=== PATIENT | male | born 1980 | race African-American/Black ===

== ENCOUNTER 2017-09-25 07:32 | Emergency (ER) | payer BC ==
[2017-09-25 08:19] LABS: #Eosinphils 0.2 thou/uL (0.0-0.7); #Lymphocytes 1.4 thou/uL (1.20-3.40); #Monocytes 0.3 thou/uL (0.11-0.59); #Neutrophils 3.1 thou/uL (1.40-6.50); %Basophils 0.7 % (0.0-1.0); %Eosinophils 4.3 % (0.0-10.0); %Lymphocytes 27.5 % (21.0-51.0); %Neutrophils 61.4 % (42.0-75.0); Hemoglobin 15.2 g/dL (14.0-18.0); Mean Corpuscular HGB CONC 34.8 g/dL (32.0-36.0); Mean Corpuscular Hemoglobin 30.3 pg (27.0-31.0); Mean Platelet Volume 8.8 fL (7.4-10.4); Platelet Count 188 thou/uL (130-400); RBC Distribution Width 11.5 % (11.5-14.5); Red Blood Cell (RBC) Count 5.02 mill/uL (4.70-6.10)
[2017-09-25 08:21] LABS: Base Excess-Venous 0.9 mmol/L (-30.0-30.0); CO2 Tension (PvCO2) 33.5 mmHg (41.0-51.0); Calcium, Ionized 1.08 mmol/L (1.12-1.32); Hemoglobin - Calc 15.4 g/dL (12.0-18.0); O2 Tension (PvO2) 53.9 mmHg (35.0-45.0); Potassium 4.2 mmol/L (3.4-4.7); T. Carbon Dioxide 25.1 mmol/L (1.0-85.0); pH (Venous) 7.464 (7.35-7.45); vO2 Saturation-calc 89.7 % (0.0-100.0)
[2017-09-25] MEDS ORDERED: Ondansetron HCl/PF 4 MG/2 ML Vial ONE (08:28)
[2017-09-25] MEDS ORDERED: Insulin Regular 300 UNITS/3 ML VIAL ONE (08:28)
[2017-09-25 08:43] LABS: ALT (SGPT) 16 U/L (8-55); AST (SGOT) 18 U/L (5-34); Albumin 4.5 g/dL (3.5-5.0); Alkaline Phosphatase 61 U/L (40-150); Anion Gap 12 mmol/L (10-20); BUN (Urea Nitrogen) 17 mg/dL (8.9-20.6); Bilirubin, Total 1.4 mg/dL (0.2-1.2); Calc. Creatinine Clearance 0 mL/min (70-130); Calcium 9.5 mg/dL (7.8-10.44); Carbon Dioxide 26 mmol/L (22-29); Chloride 98 mmol/L (98-107); Estimated GFR-MDRD 84; Globulin 2.6 g/dL (2.4-3.5); Glucose 361 mg/dL (70-105); Lipase 20 U/L (8-78); Potassium 4.2 mmol/L (3.5-5.1); Protein, Total 7.1 g/dL (6.0-8.3); Sodium 132 mmol/L (136-145)
[2017-09-25 08:48] LABS: Phosphorus 1.5 mg/dL (2.3-4.7)
[2017-09-25 09:57] LABS: Bilirubin Negative (Negative); Blood, Urine Negative (Negative); Clarity CLEAR (Clear); Glucose, Urine (Dipstick) 500 mg/dL (Negative); Leukocyte Negative (Negative); Nitrite Negative (Negative); Protein, Urine (Dipstick) Negative (Neg-Trace); Specific Gravity, Urine 1.021 (1.002-1.036); pH, Urine 7.5 (5.0-9.0)
== END 2017-09-25 10:44 | disposition home or self-care (01) ==
LOC: ERS 07:32
DX: T85.694A Other mechanical complication of insulin pump, initial encounter (principal); E11.65 Type 2 diabetes mellitus with hyperglycemia; I10 Essential (primary) hypertension; Z79.4 Long term (current) use of insulin; Z96.41 Presence of insulin pump (external) (internal)
CPT/HCPCS: 36416; 80053; 81003; 82010; 82330; 82803; 83690; 83735; 84100; 85025; 96361; 96372; 96374; J1815; J2405

== ENCOUNTER 2018-07-18 17:54 | Emergency (ER) | payer BC ==
[2018-07-18] MEDS ORDERED: Fentanyl 100 MCG/2 ML VIAL ONE (18:31)
[2018-07-18 18:33] LABS: #Eosinphils 0.2 thou/uL (0.0-0.7); #Lymphocytes 1.8 thou/uL (1.20-3.40); #Monocytes 0.3 thou/uL (0.11-0.59); #Neutrophils 2.9 thou/uL (1.40-6.50); %Basophils 0.6 % (0.0-1.0); %Eosinophils 3.1 % (0.0-10.0); %Lymphocytes 34.3 % (21.0-51.0); %Monocytes 6.1 % (0.0-10.0); %Neutrophils 55.9 % (42.0-75.0); Hemoglobin 14.6 g/dL (14.0-18.0); Mean Corpuscular HGB CONC 35.2 g/dL (32.0-36.0); Mean Corpuscular Hemoglobin 30.6 pg (27.0-31.0); Mean Platelet Volume 8.5 fL (7.4-10.4); Platelet Count 188 thou/uL (130-400); RBC Distribution Width 11.5 % (11.5-14.5); Red Blood Cell (RBC) Count 4.75 mill/uL (4.70-6.10); White Blood Cell (WBC) Count 5.2 thou/uL (4.8-10.8)
[2018-07-18 18:55] LABS: ALT (SGPT) 14 U/L (8-55); AST (SGOT) 20 U/L (5-34); Albumin 4.4 g/dL (3.5-5.0); Alkaline Phosphatase 59 U/L (40-150); Anion Gap 13 mmol/L (10-20); BUN (Urea Nitrogen) 10 mg/dL (8.9-20.6); Bilirubin, Total 0.8 mg/dL (0.2-1.2); CK (CPK) 265 U/L (30-200); Calc. Creatinine Clearance 0 mL/min (70-130); Calcium 9.4 mg/dL (7.8-10.44); Carbon Dioxide 23 mmol/L (22-29); Chloride 104 mmol/L (98-107); Estimated GFR-MDRD 86; Globulin 2.5 g/dL (2.4-3.5); Glucose 93 mg/dL (70-105); Protein, Total 6.9 g/dL (6.0-8.3); Sodium 136 mmol/L (136-145)
--- NOTE | 2018-07-18 19:39 | RAD ---
PORTABLE CHEST: HISTORY: Chest pain. COMPARISON: 10/25/2008 FINDINGS: Heart size and mediastinum are within normal limits. Lungs are clear of any infiltrates. No signifi cant bony findings. POS: [facility]
== END 2018-07-18 19:45 | disposition home or self-care (01) ==
LOC: ERS 17:54
DX: R07.9 Chest pain, unspecified (principal); M79.602 Pain in left arm; M79.601 Pain in right arm; E10.9 Type 1 diabetes mellitus without complications; I10 Essential (primary) hypertension; Z79.4 Long term (current) use of insulin; Z79.899 Other long term (current) drug therapy
CPT/HCPCS: 36415; 36416; 71045; 80053; 82550; 84484; 85025; 93005; 96374; J3010

== ENCOUNTER 2019-10-21 07:36 | Outpatient (CLI) | payer OTHER ==
[2019-10-21] MEDS ORDERED: Iopamidol-370 76% 500 ML 1 ML ONE (08:39)
--- NOTE | 2019-10-21 08:51 | CT ---
CT OF THE ABDOMEN AND PELVIS WITH CONTRAST: HISTORY: Lower abdominal pain for 2 weeks. TECHNIQUE: Multiple contiguous axial images were obtained in a CT of the abdomen and pelvis with contrast. P.o. contrast was administered. Sagittal and coronal reformats were performed. FINDINGS: The liver, gallbladder, kidneys, adrenal glands, spleen, and pancreas are unremarkable. No free air, free fluid, or stranding changes are seen in the abdomen or pelvis. The large and small bowel are u nremarkable. The appendix is unremarkable. No abdominal or pelvic lymphadenopathy are appreciated. The bones, abdominal wall soft tissues, and visualized inferior thorax are unremarkable. IMPRESSION: No evidence of acute intraabdominal/pelvic abnormality. POS: [facility]
== END 2019-10-21 07:37 | disposition home or self-care (01) ==
LOC: BICCT 07:36
PROVIDERS: ATTEND Family Medicine
DX: R10.30 Lower abdominal pain, unspecified (principal)
CPT/HCPCS: 74177; Q9967

== ENCOUNTER 2020-04-16 14:42 | Outpatient (CLI) | payer OTHER ==
--- NOTE | 2020-04-16 16:30 | MRI ---
MRI OF LEFT SHOULDER PERFORMED WITHOUT CONTRAST ENHANCEMENT: History: Left shoulder pain, injury, tripped while carrying a couch. FINDINGS: Some mild arthrosis of the AC joint. The supra as well as infraspinatus tendons are intact. There is tendinosis changes of the supraspinatous tendon. Subscapularis muscle and tendon are intact and the biceps tendon is normal in position within the bic ipital groove. There is increased signal change which is not fluid density signal associated at the superior labrum just posterior to the biceps anchor, this probably represents a small chronic slap tear with the inte rmediate signal change being caused by some scar or granulation tissue. The inferior glenohumeral lig ament and ligamentous labral complex all appear intact. IMPRESSION: 1. Slap type tear of the superior labrum which may be more of a chronic injury. 2. Moderate tendinosis of the supraspinatus tendon. POS: [facility]
== END 2020-04-16 14:43 | disposition home or self-care (01) ==
LOC: TBSIIMAG 14:42
PROVIDERS: ATTEND Family Medicine
DX: M24.9 Joint derangement, unspecified (principal); S43.431A Superior glenoid labrum lesion of right shoulder, initial encounter; M75.82 Other shoulder lesions, left shoulder

== ENCOUNTER 2021-03-04 17:14 | Emergency (ER) | payer OTHER | END 2021-03-04 20:50 | disposition left against medical advice (07) | LOC: ERS 17:14 | DX: Z53.21 Procedure and treatment not carried out due to patient leaving prior to being seen by health care provider (principal) ==

== ENCOUNTER 2022-06-19 06:21 | Inpatient (IN) | payer OTHER ==
[2022-06-19 06:49] LABS: Actual Bicarbonate (HCO3v) 22 mEq/L (22-28); Base Excess -1.4 mEq/L (-2.0 to +3.0); Calcium, Ionized (venous) 1.09 mmol/L (1.16-1.32); Chloride (VBG) 100 mmol/L (98-106); Hemoglobin (Hb) 16.1 g/dL (13.2-17.3); Potassium (VBG) 4.95 mmol/L (3.70-5.30); pH (venous) 7.43 (7.32-7.43)
[2022-06-19 06:53] LABS: #Lymphocytes 1.3 thou/uL (1.20-3.40); #Monocytes 0.3 thou/uL (0.11-0.59); #Neutrophils 7.3 thou/uL (1.40-6.50); %Basophils 0.5 % (0.0-1.0); %Eosinophils 0.5 % (0.0-10.0); %Lymphocytes 14.2 % (21.0-51.0); %Neutrophils 81.8 % (42.0-75.0); Hemoglobin 14.9 g/dL (14.0-18.0); Mean Corpuscular HGB CONC 32.8 g/dL (32.0-36.0); Mean Corpuscular Hemoglobin 29.7 pg (27.0-31.0); Mean Corpuscular Volume 90.5 fl (78.0-98.0); Mean Platelet Volume 9.5 fL (7.4-10.4); Platelet Count 173 10x3/uL (130-400); RBC Distribution Width 11.7 % (11.5-14.5); Red Blood Cell (RBC) Count 5.03 mill/uL (4.70-6.10); White Blood Cell (WBC) Count 8.9 10x3/uL (4.8-10.8)
[2022-06-19 07:07] LABS: ALT (SGPT) 22 U/L (8-55); AST (SGOT) 18 U/L (5-34); Albumin 4.7 g/dL (3.5-5.0); Alkaline Phosphatase 72 U/L (40-110); Anion Gap 20 mmol/L (10-20); BUN (Urea Nitrogen) 16 mg/dL (8.9-20.6); Bilirubin, Total 2.2 mg/dL (0.2-1.2); CK (CPK) 118 U/L (30-200); Calc. Creatinine Clearance 0 mL/min (70-130); Calcium 9.7 mg/dL (7.8-10.44); Carbon Dioxide 20 mmol/L (22-29); Chloride 99 mmol/L (98-107); Estimated GFR 67; Lipase 68 U/L (8-78); Magnesium 1.9 mg/dL (1.6-2.6); Phosphorus 1.6 mg/dL (2.3-4.7); Protein, Total 7.7 g/dL (6.0-8.3); Sodium 134 mmol/L (136-145)
[2022-06-19] MEDS ORDERED: INSULIN REGULAR IN 0.9 % NACL 100 UNIT/100 ML BAG ONE (07:16)
[2022-06-19] MEDS ORDERED: Ondansetron PF 4 MG/2 ML Vial ONE (07:16)
[2022-06-19 07:22] LABS: Glucose 462 mg/dL (70-105)
[2022-06-19 07:29] LABS: SARS-CoV-2 NAA Rapid Test Not Detected (NotDetected)
[2022-06-19] MEDS ORDERED: Acetaminophen 325 MG TAB PO PRN (07:47)
[2022-06-19] MEDS ORDERED: Promethazine HCl 12.5 MG in Sodium Chloride 0.9% 50 ML IVPB PRN (08:09)
[2022-06-19 08:17] LABS: Bilirubin Negative (Negative); Blood, Urine Negative (Negative); Clarity Clear (Clear); Glucose, Urine (Dipstick) Greater than 1000 mg/dL (Negative); Ketone, Urine 100 mg/dL (Negative); Leukocyte Negative Leu/uL (Negative); Nitrite Negative (Negative); Protein, Urine (Dipstick) Negative (Neg-Trace); Specific Gravity, Urine 1.022 (1.002-1.036); Urobilinogen Normal mg/dL (Less than 2); pH, Urine 5.5 (5.0-9.0)
[2022-06-19 08:32] LABS: Hemoglobin A1c 7.6 % (4.0-6.0)
[2022-06-19] MEDS ORDERED: Famotidine/PF 20 mg/2ml Vial SLOW IVP SCH (09:00)
[2022-06-19 09:16] LABS: Calcium 8.4 mg/dL (7.8-10.44); Chloride 106 mmol/L (98-107); Potassium 4.4 mmol/L (3.5-5.1); Sodium 136 mmol/L (136-145)
[2022-06-19 09:17] LABS: Glucose 370 mg/dL (70-105)
[2022-06-19 09:18] LABS: Anion Gap 17 mmol/L (10-20); Carbon Dioxide 17 mmol/L (22-29)
[2022-06-19 09:20] LABS: Calc. Creatinine Clearance 0 mL/min (70-130); Estimated GFR 81
[2022-06-19 09:21] LABS: BUN (Urea Nitrogen) 17 mg/dL (8.9-20.6)
[2022-06-19] MEDS ORDERED: ADD ELECTROLYTE REPLACEMENT SET TO PROFILE SLOW IVP PRN (10:20)
[2022-06-19] MEDS ORDERED: Dextrose 50% Abboject 50 ML SYRINGE SLOW IVP PRN (10:21)
[2022-06-19] MEDS: Pantoprazole 40 MG VIAL IVP SCH (10:25)
[2022-06-19] MEDS: Enoxaparin Sodium 40 MG/0.4 ML SYRINGE SC SCH (10:27)
[2022-06-19] MEDS ORDERED: Dextrose 5 %-0.45 % NaCl 1,000 ML IV PRN (10:30)
[2022-06-19] MEDS ORDERED: HUMULIN R 100 UNITS in Sodium Chloride 0.9% 100 ML IVPB SCH (10:30)
[2022-06-19] MEDS ORDERED: NS 0.9% w/ 20 MEQ KCL 1,000 ML/1,000 ML BAG IV PRN ×2 (10:30)
[2022-06-19] MEDS ORDERED: Insulin Regular 300 UNITS/3 ML VIAL IVP SCH (10:30)
[2022-06-19] MEDS ORDERED: Dextrose 5% in Water 1,000 ML IV PRN (10:30)
[2022-06-19] MEDS ORDERED: Sodium Chloride 0.9% 1,000 ML IV PRN ×4 (10:30)
[2022-06-19 11:29] LABS: Lactic Acid 1.7 mmol/L (0.5-2.2)
[2022-06-19] MEDS: D5 1/2 NS w/20 mEq KCL 1,000 ML IV PRN ×2 (11:44→15:50)
[2022-06-19 13:21] LABS: Anion Gap 9 mmol/L (10-20); BUN (Urea Nitrogen) 14 mg/dL (8.9-20.6); Calc. Creatinine Clearance 99 mL/min (70-130); Calcium 8.1 mg/dL (7.8-10.44); Carbon Dioxide 22 mmol/L (22-29); Chloride 112 mmol/L (98-107); Estimated GFR 89; Glucose 164 mg/dL (70-105); Potassium 4.2 mmol/L (3.5-5.1); Sodium 139 mmol/L (136-145)
[2022-06-19] MEDS: Metoclopramide HCl 10 MG/2 ML VIAL IVP SCH ×2 (14:09→21:31)
[2022-06-19 17:18] LABS: Anion Gap 12 mmol/L (10-20); BUN (Urea Nitrogen) 12 mg/dL (8.9-20.6); Calc. Creatinine Clearance 109 mL/min (70-130); Calcium 8.1 mg/dL (7.8-10.44); Carbon Dioxide 21 mmol/L (22-29); Chloride 109 mmol/L (98-107); Estimated GFR 99; Glucose 187 mg/dL (70-105); Potassium 4.4 mmol/L (3.5-5.1); Sodium 138 mmol/L (136-145)
[2022-06-19] MEDS: NPH, Human Insulin Isophane 300 UNIT/3 ML VIAL SC SCH (17:26)
[2022-06-19] MEDS ORDERED: Electrolyte Replacement Protocol FS PRN (17:56)
[2022-06-19] MEDS: PHOS-NAK 1 PKT PACK PO SCH (20:01)
[2022-06-19] MEDS ORDERED: Magnesium 2 GM/50 ML(in water) 2 GM in Premix Bag 1 BAG IVPB SCH (21:00)
[2022-06-19 22:39] LABS: Anion Gap 12 mmol/L (10-20); BUN (Urea Nitrogen) 12 mg/dL (8.9-20.6); Calc. Creatinine Clearance 91 mL/min (70-130); Calcium 8.3 mg/dL (7.8-10.44); Carbon Dioxide 21 mmol/L (22-29); Chloride 107 mmol/L (98-107); Estimated GFR 80; Glucose 326 mg/dL (70-105); Potassium 4.3 mmol/L (3.5-5.1); Sodium 136 mmol/L (136-145)
[2022-06-20] MEDS: PHOS-NAK 1 PKT PACK PO SCH (00:16)
[2022-06-20 04:18] LABS: Magnesium 1.9 mg/dL (1.6-2.6); Phosphorus 2.8 mg/dL (2.3-4.7)
[2022-06-20] MEDS: Metoclopramide HCl 10 MG/2 ML VIAL IVP SCH ×2 (06:08→14:26)
[2022-06-20] MEDS: NPH, Human Insulin Isophane 300 UNIT/3 ML VIAL SC SCH (06:13)
[2022-06-20] MEDS: Enoxaparin Sodium 40 MG/0.4 ML SYRINGE SC SCH (07:13)
[2022-06-20] MEDS: Pantoprazole 40 MG VIAL IVP SCH (07:31)
[2022-06-20] MEDS ORDERED: Magnesium 2 GM/50 ML(in water) 2 GM in Premix Bag 1 BAG IVPB SCH (08:00)
[2022-06-20 10:26] LABS: #Eosinphils 0.2 thou/uL (0.0-0.7); #Lymphocytes 1.6 thou/uL (1.20-3.40); #Monocytes 0.3 thou/uL (0.11-0.59); #Neutrophils 2.2 thou/uL (1.40-6.50); %Basophils 0.1 % (0.0-1.0); %Eosinophils 3.6 % (0.0-10.0); %Lymphocytes 36.6 % (21.0-51.0); %Monocytes 7.5 % (0.0-10.0); %Neutrophils 52.2 % (42.0-75.0); Hemoglobin 12.4 g/dL (14.0-18.0); Mean Corpuscular HGB CONC 33.2 g/dL (32.0-36.0); Mean Corpuscular Hemoglobin 30.4 pg (27.0-31.0); Mean Corpuscular Volume 91.5 fl (78.0-98.0); Mean Platelet Volume 9.4 fL (7.4-10.4); Platelet Count 152 10x3/uL (130-400); RBC Distribution Width 11.7 % (11.5-14.5); Red Blood Cell (RBC) Count 4.09 mill/uL (4.70-6.10); White Blood Cell (WBC) Count 4.2 10x3/uL (4.8-10.8)
[2022-06-20 10:47] LABS: ALT (SGPT) 13 U/L (8-55); AST (SGOT) 13 U/L (5-34); Albumin 3.7 g/dL (3.5-5.0); Alkaline Phosphatase 44 U/L (40-110); Anion Gap 10 mmol/L (10-20); BUN (Urea Nitrogen) 9 mg/dL (8.9-20.6); Bilirubin, Total 2.5 mg/dL (0.2-1.2); Calc. Creatinine Clearance 87 mL/min (70-130); Calcium 8.4 mg/dL (7.8-10.44); Carbon Dioxide 25 mmol/L (22-29); Chloride 103 mmol/L (98-107); Estimated GFR 79; Globulin 2.2 g/dL (2.4-3.5); Glucose 399 mg/dL (70-105); Magnesium 1.7 mg/dL (1.6-2.6); Phosphorus 2.6 mg/dL (2.3-4.7); Potassium 4.3 mmol/L (3.5-5.1); Protein, Total 5.9 g/dL (6.0-8.3); Sodium 134 mmol/L (136-145)
[2022-06-20 12:02] VITALS: BMI 24.0
[2022-06-20 12:18] VITALS: TEMP 98.6
== END 2022-06-20 16:14 | disposition home or self-care (01) | DRG 639 ==
LOC: ERS 06:21 → IMCU/EMU 07:47
PROVIDERS: ADMIT Internal Medicine; ATTEND Internal Medicine
DX: E10.65 Type 1 diabetes mellitus with hyperglycemia (principal); Z20.822 Contact with and (suspected) exposure to COVID-19; I10 Essential (primary) hypertension; J45.909 Unspecified asthma, uncomplicated; R11.2 Nausea with vomiting, unspecified; Z96.41 Presence of insulin pump (external) (internal); Z79.4 Long term (current) use of insulin; Z98.890 Other specified postprocedural states
CPT/HCPCS: 36415; 36416; 71045; 80053; 81003; 82010; 82550; 82805; 83036; 83605; 83690; 83735; 84100; 84484; 85025; 87040; 93005; 96360; 96374; 96375; C9113; J1815; J2405; J2550; J2765; J3475; J3480

== ENCOUNTER 2022-10-31 21:50 | Emergency (ER) | payer OTHER ==
[2022-10-31] MEDS ORDERED: methylPREDNISolone Sod Succ/PF 125 MG/2 ML VIAL ONE (22:10)
[2022-10-31] MEDS ORDERED: Ipratropium/Albuterol 3 ML NEB ONE ×2 (22:15→22:29)
[2022-10-31 22:41] LABS: #Basophils 0.1 thou/uL (0.0-0.2); #Eosinphils 0.4 thou/uL (0.0-0.7); #Lymphocytes 1.9 thou/uL (1.20-3.40); #Monocytes 0.4 thou/uL (0.11-0.59); #Neutrophils 2.5 thou/uL (1.40-6.50); %Basophils 1.3 % (0.0-1.0); %Eosinophils 8.2 % (0.0-10.0); %Lymphocytes 36.2 % (21.0-51.0); %Neutrophils 47.3 % (42.0-75.0); Hemoglobin 13.9 g/dL (14.0-18.0); Mean Corpuscular HGB CONC 34.9 g/dL (32.0-36.0); Mean Corpuscular Hemoglobin 31.2 pg (27.0-31.0); Mean Corpuscular Volume 89.5 fl (78.0-98.0); Mean Platelet Volume 8.9 fL (7.4-10.4); Platelet Count 165 10x3/uL (130-400); RBC Distribution Width 11.7 % (11.5-14.5); Red Blood Cell (RBC) Count 4.46 mill/uL (4.70-6.10); White Blood Cell (WBC) Count 5.2 10x3/uL (4.8-10.8)
[2022-10-31 23:04] LABS: ALT (SGPT) 20 U/L (8-55); AST (SGOT) 22 U/L (5-34); Albumin 4.2 g/dL (3.5-5.0); Alkaline Phosphatase 56 U/L (40-110); Anion Gap 12 mmol/L (10-20); BUN (Urea Nitrogen) 15 mg/dL (8.9-20.6); Bilirubin, Total 0.7 mg/dL (0.2-1.2); Calc. Creatinine Clearance 0 mL/min (70-130); Calcium 9.4 mg/dL (7.8-10.44); Carbon Dioxide 26 mmol/L (22-29); Chloride 103 mmol/L (98-107); Estimated GFR 80; Globulin 2.4 g/dL (2.4-3.5); Glucose 255 mg/dL (70-105); Potassium 4.4 mmol/L (3.5-5.1); Protein, Total 6.6 g/dL (6.0-8.3); Sodium 137 mmol/L (136-145)
== END 2022-11-01 00:52 | disposition home or self-care (01) ==
LOC: ERS 21:50
DX: J45.901 Unspecified asthma with (acute) exacerbation (principal); E10.9 Type 1 diabetes mellitus without complications; I10 Essential (primary) hypertension
CPT/HCPCS: 36415; 36416; 71045; 80053; 84484; 85025; 93005; 94644; 96361; 96374; J2930; J7620

== ENCOUNTER 2023-08-28 10:03 | Outpatient (CLI) | payer OTHER | END 2023-08-28 10:04 | disposition home or self-care (01) | LOC: SCSRAD 10:03 | PROVIDERS: ATTEND Nurse Practitioner Family | DX: M25.551 Pain in right hip (principal); M16.11 Unilateral primary osteoarthritis, right hip; M46.1 Sacroiliitis, not elsewhere classified; Z00.00 Encounter for general adult medical examination without abnormal findings; E10.9 Type 1 diabetes mellitus without complications | CPT/HCPCS: 36415; 72170; 80053; 80061; 81001; 82043; 83036; 85025 ==

== ENCOUNTER 2023-09-11 12:26 | Outpatient (CLI) | payer OTHER ==
[2023-09-11] MEDS ORDERED: Iopamidol-370 76% 500 ML MDV (1 ML CHARGE) ONE (14:56)
== END 2023-09-11 12:27 | disposition home or self-care (01) ==
LOC: BICCT 12:26
PROVIDERS: ATTEND Nurse Practitioner Family
DX: R93.7 Abnormal findings on diagnostic imaging of other parts of musculoskeletal system (principal)
CPT/HCPCS: 74177; Q9967